=== PATIENT | female | born 1970 | race Caucasian/White ===

== ENCOUNTER 2021-04-06 08:52 | Day surgery (SDC) | payer OTHER ==
[2021-03-30 13:36] VITALS: BMI 24.2
[2021-04-06] MEDS ORDERED: MIDAZOLAM HCL 2 MG/2 ML SINGLE DOSE VIAL ONE ×2 (09:59→10:52)
[2021-04-06] MEDS ORDERED: PROPOFOL 20 ML ONE ×5 (09:59→11:57)
[2021-04-06] MEDS ORDERED: EPINEPHrine/PF 1 MG/1 ML (1:1,000) AMPULE ONE (10:25)
[2021-04-06] MEDS ORDERED: BACITRACIN 3.5 GM OPTHALMIC OINT TUBE ONE (10:25)
[2021-04-06] MEDS ORDERED: BUPIVACAINE HCL/PF 2.5 MG/ML - 30 ML VIAL IJ ONE (10:25)
[2021-04-06] MEDS ORDERED: SCOPOLAMINE HYDROBROMIDE 1 PATCH PATCH.TD72 ONE (10:39)
[2021-04-06] MEDS ORDERED: POVIDONE-IODINE 5% OPHTHALMIC PREP 30 ML SOLUTION ONE (11:33)
[2021-04-06] MEDS ORDERED: HYDROmorphone HCL/PF 1 MG/ML VIAL ONE (11:49)
[2021-04-06] MEDS ORDERED: ACETAMINOPHEN INJECTION 100 ML IVPB ONE (12:46)
[2021-04-06] MEDS ORDERED: ONDANSETRON 4 MG/2 ML VIAL IVPUSH PRN (12:48)
[2021-04-06] MEDS ORDERED: ACETAMINOPHEN 325 MG TABLET (FP) PO PRN (12:48)
[2021-04-06] MEDS ORDERED: oxyCODONE HCL 5 MG TABLET PO PRN ×3 (12:49→15:35)
[2021-04-06] MEDS ORDERED: ACETAMINOPHEN 1000 MG/100 ML VIAL IVPB PRN (12:50)
[2021-04-06] MEDS ORDERED: ONDANSETRON 4 MG/2 ML VIAL ONE ×2 (12:57→14:26)
[2021-04-06] MEDS ORDERED: LACTATED RINGERS SOLUTION 1,000 ML IV SCH (13:00)
[2021-04-06] MEDS ORDERED: PROMETHAZINE HCL 25 MG/1 ML VIAL ONE (14:45)
[2021-04-06 15:01] VITALS: TEMP 98.1
[2021-04-06] MEDS ORDERED: PROMETHAZINE HCL 25 MG/1 ML VIAL IVPUSH PRN (15:35)
[2021-04-06 16:14] VITALS: BP 108/64; PULSE 66
== END 2021-04-06 16:15 | disposition home or self-care (01) ==
LOC: FASU 08:52
PROVIDERS: ATTEND Plastic Surgery
PROC: 0W020ZZ Alteration of Face, Open Approach (ICD-10-PCS; principal; 2021-04-06 11:41)
DX: H57.811 Brow ptosis, right (principal)
CPT/HCPCS: 84703; 94760; J0131